=== PATIENT | male | born 1985 | race Two or more races ===

== ENCOUNTER 2022-11-18 19:55 | Emergency (ER) | payer OTHER ==
[~2022-11-18] VITALS: Ht 188 cm; Wt 84.1 kg
[2022-11-18 21:17] VITALS: BP 156/96
[2022-11-19] MEDS ORDERED: CYCL-837 PO (01:20)
[2022-11-19] MEDS ORDERED: IBUP800T27 PO (01:20)
[2022-11-19] MEDS ORDERED: KETOROLAC TROMETH 60MG/2ML VIAL IM ONE (01:30)
== END 2022-11-19 01:43 | disposition home or self-care (01) ==
LOC: ER 19:58
DX: S63.91XA Sprain of unspecified part of right wrist and hand, initial encounter (principal); S00.83XA Contusion of other part of head, initial encounter; M26.603 Bilateral temporomandibular joint disorder, unspecified; F17.210 Nicotine dependence, cigarettes, uncomplicated; Y04.8XXA Assault by other bodily force, initial encounter; Y93.89 Activity, other specified; Y92.89 Other specified places as the place of occurrence of the external cause; Y99.8 Other external cause status
CPT/HCPCS: 70140; 73130; 96372; 99284; J1885